=== PATIENT | female | born 2000 | race Caucasian/White ===

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

== ENCOUNTER 2023-05-27 13:53 | Emergency (ER) | payer MEDICAID ==
[~2023-05-27] VITALS: Ht 172.7 cm; Wt 63.5 kg
[2023-05-27] MEDS ORDERED: SODIUM CHLORIDE 0.9% 1,000 ML IV ONE (14:40)
[2023-05-27] MEDS ORDERED: Thiamine 200 MG/2 ML VIAL IV ONE (14:40)
[2023-05-27] MEDS ORDERED: Ondansetron Hydrochloride 4 MG/2 ML VIAL IV ONE (14:40)
[2023-05-27 14:50] LABS: BASO % 0.3 % (0.0-1.0); EOS % 0.2 % (1.0-4.0); HEMATOCRIT 43.2 % (37.0-47.0); LYMPH # 1.5 10*3/uL (1.3-4.4); LYMPH % 15.6 % (27.0-41.0); MEAN CELL VOLUME 87.4 fl (81.0-99.0); MEAN CORPUSCULAR HGB 28.1 pg (27.0-31.0); MEAN CORPUSCULAR HGB CONC 32.2 g/dl (33.0-37.0); MEAN PLATELET VOLUME 9.4 fl (9.6-12.3); MONO # 0.4 10*3/uL (0.1-1.0); MONO % 4.1 % (3.0-9.0); NEUT # 7.5 10*3/uL (2.3-7.9); NEUT % 79.5 % (47.0-73.0); PLATELET COUNT AUTOMATED 311 10*3/uL (130-400); RED BLOOD COUNT 4.94 10*6/uL (4.10-5.10); RED CELL DISTRI WIDTH 12.3 % (0-14.5); WHITE BLOOD COUNT 9.5 10*3/uL (4.8-10.8)
[2023-05-27 15:09] LABS: ALKALINE PHOSPHATASE 62 U/L (46-116); BUN 9 mg/dl (9-23); CHLORIDE 110 mmol/L (98-107); LIPASE 31 U/L (12-53); SGPT/ALT 10 U/L (5-49); TOTAL PROTEIN 7.7 gm/dL (6.0-8.0)
[2023-05-27] MEDS ORDERED: ONDANSETRON4 MG SL (17:16)
[2023-05-27 17:38] LABS: BILIRUBIN Negative (Negative); BLOOD Negative (Negative); CLARITY Clear (Clear); COLOR Yellow (Yellow); GLUCOSE Negative (Negative); KETONE 1+ (Negative); LEUKO ESTERASE Negative (Negative); NITRITE Negative (Negative); SPECIFIC GRAVITY 1.025 (1.001-1.030); UROBILINOGEN 0.2 E.U./dl (0.0-1.0)
[2023-05-27 17:47] LABS: BACTERIA 1+; RBC 0-2 rbc/hpf (0-2)
== END 2023-05-27 17:38 | disposition home or self-care (01) ==
LOC: ED 13:53
PROVIDERS: Nurse Practitioner Family
DX: F10.129 Alcohol abuse with intoxication, unspecified (principal); R11.2 Nausea with vomiting, unspecified; Y90.6 Blood alcohol level of 120-199 mg/100 ml

== ENCOUNTER 2023-12-13 22:01 | Emergency (ER) | payer MEDICAID ==
[~2023-12-13] VITALS: Ht 172.7 cm; Wt 68.0 kg
[~2023-12-13 22:01] MED LIST: ONDANSETRON4 MG SL
[2023-12-13] MEDS ORDERED: LEXAPRO10 MG PO (22:13)
[2023-12-13] MEDS ORDERED: BUSPAR5 MG PO (22:13)
[2023-12-13] MEDS ORDERED: LEVOTHYROXINE50 MCG PO (22:14)
[2023-12-13] MEDS ORDERED: DISULFIRAM250 M1 PO (22:17)
[2023-12-13] MEDS ORDERED: ACAMPROSATE CA333 M1 PO (22:21)
[2023-12-13] MEDS ORDERED: Gelatin Sponge 1 EACH SPON T ONE (22:40)
[2023-12-13] MEDS ORDERED: Acetaminophen/Hydrocodone 5 MG/325 MG TABLET PO ONE (22:40)
[2023-12-13] MEDS ORDERED: Ondansetron Hydrochloride 4 MG TAB SL ONE (22:40)
[2023-12-13 22:55] LABS: BASO # 0.1 10*3/uL (0.0-0.1); EOS % 0.8 % (1.0-4.0); HEMATOCRIT 38.4 % (37.0-47.0); MEAN CELL VOLUME 88.1 fl (81.0-99.0); MEAN CORPUSCULAR HGB 28.4 pg (27.0-31.0); MEAN CORPUSCULAR HGB CONC 32.3 g/dl (33.0-37.0); MEAN PLATELET VOLUME 9.9 fl (9.6-12.3); MONO # 0.3 10*3/uL (0.1-1.0); MONO % 5.7 % (3.0-9.0); NEUT # 2.5 10*3/uL (2.3-7.9); NEUT % 50.3 % (47.0-73.0); PLATELET COUNT AUTOMATED 299 10*3/uL (130-400); RED BLOOD COUNT 4.36 10*6/uL (4.10-5.10); RED CELL DISTRI WIDTH 12.3 % (0-14.5); WHITE BLOOD COUNT 4.9 10*3/uL (4.8-10.8)
[2023-12-13] MEDS ORDERED: Tdap Vaccine 0.5 ML SYR (Adult Vaccine) IM ONE (23:20)
[2023-12-14] MEDS ORDERED: Bacitracin Zinc 14 GM TUBE T ONE (01:40)
== END 2023-12-14 01:56 | disposition home or self-care (01) ==
LOC: ED 22:01
PROVIDERS: Internal Medicine
DX: S61.412A Laceration without foreign body of left hand, initial encounter (principal); W26.0XXA Contact with knife, initial encounter; Y93.89 Activity, other specified; Y92.009 Unspecified place in unspecified non-institutional (private) residence as the place of occurrence of the external cause; Y99.8 Other external cause status

== ENCOUNTER 2023-12-22 07:47 | Emergency (ER) | payer OTHER ==
[~2023-12-22] VITALS: Ht 172.7 cm; Wt 68.0 kg
[~2023-12-22 07:47] MED LIST changes: +ACAMPROSATE CA333 M1 PO; +BUSPAR5 MG PO; +DISULFIRAM250 M1 PO; +LEVOTHYROXINE50 MCG PO; +LEXAPRO10 MG PO
== END 2023-12-22 08:49 | disposition home or self-care (01) ==
LOC: ED 07:47
DX: S61.412D Laceration without foreign body of left hand, subsequent encounter (principal); X78.1XXD Intentional self-harm by knife, subsequent encounter

== ENCOUNTER → 2024-03-14 | Outpatient (CLI) | payer OTHER | END | disposition home or self-care (01) | LOC: RAD 12:19 | PROVIDERS: ATTEND Orthopaedic Surgery | DX: M25.512 Pain in left shoulder (principal); R10.9 Unspecified abdominal pain ==